=== PATIENT | female | born 1995 | race Two or more races ===

== ENCOUNTER 2021-06-02 12:47 | Emergency (ER) | payer BC ==
[2021-06-02] MEDS ORDERED: Bacitracin Oint 1 GM U/D Packet TOP ONE (13:30)
[2021-06-02] MEDS ORDERED: Lidocaine 1% with EPINEPHrine 1:100,000 50 ML MDV SUBCUT ONE (13:32)
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
== END 2021-06-02 14:51 | disposition home or self-care (01) ==
LOC: JP.ED 12:47
DX: S81.811A Laceration without foreign body, right lower leg, initial encounter (principal); W26.8XXA Contact with other sharp object(s), not elsewhere classified, initial encounter
CPT/HCPCS: 12002; 99282-25